=== PATIENT | female | born 1975 ===

== ENCOUNTER 2018-01-03 20:41 | Emergency (ER) | payer MEDICAID ==
[2018-01-03] MEDS ORDERED: Sodium Chloride 0.9% 1,000 ML IV STA (21:20)
--- NOTE | 2018-01-03 21:20 | ED PDOC ---
"Arrival/HPI - General Chief Complaint: Back Pain Time Seen by Provider: 01/03/18 21:14 Historian: Patient - History of Present Illness Narrative History of Present Illness (Text): 01/03/18 21:19 42 year old female, whose past medical history includes hypertension, no known food/drug allergies, who presents to the emergency department complaining of sudden onset of left flank pain since approximately 16:00 today. Pain described as sharp and does not travel anywhere. Patient denies any recent travel, hematuria, chest pain, shortness of breath, nausea, vomiting, abdominal or pelvic pain, or any other complaints. Time/Duration: 4-6 hours Symptom Onset: Sudden Symptom Course: Unchanged Activities at Onset: Light Context: Home Past Medical History - Provider Review Nursing Documentation Reviewed: Yes - Infectious Disease Hx of Infectious Diseases: None Family/Social History - Physician Review Nursing Documentation Reviewed: Yes Family/Social History: Unknown Family HX Allergies/Home Meds Allergies/Adverse Reactions: Allergies No Known Allergies Allergy (Verified 01/03/18 21:06) Home Medications: Home Meds Medication Instructions Recorded Confirmed Metoprolol Succinate XL [Toprol XL] 50 mg PO DAILY 01/03/18 01/03/18 Review of Systems - Physician Review All systems were reviewed & negative as marked: Yes - Review of Systems Constitutional: absent: Fatigue, Fevers Eyes: absent: Vision Changes ENT: absent: Hearing Changes Respiratory: absent: SOB Cardiovascular: absent: Chest Pain Gastrointestinal: absent: Abdominal Pain, Diarrhea, Nausea, Vomiting Genitourinary Female: absent: Hematuria Musculoskeletal: Back Pain (+flank pain). absent: Arthralgias Skin: absent: Rash, Pruritis Psychiatric: absent: Anxiety, Depression, Suicidal Ideation Physical Exam Vital Signs Reviewed: Yes Vital Signs Pulse Resp BP Pulse Ox 01/03/18 22:02 72 17 142/83 100 Temperature: Afebrile Blood Pressure: Normal Pulse: Regular Respiratory Rate: Normal Appearance: Positive for: Well-Appearing, Non-Toxic Pain Distress: Moderate Mental Status: Positive for: Alert and Oriented X 3 - Systems Exam Head: Present: Atraumatic, Normocephalic Pupils: Present: PERRL Extroacular Muscles: Present: EOMI Conjunctiva: Present: Normal Mouth: Present: Moist Mucous Membranes Neck: Present: Normal Range of Motion Respiratory/Chest: Present: Clear to Auscultation, Good Air Exchange. No: Respiratory Distress, Accessory Muscle Use Cardiovascular: Present: Regular Rate and Rhythm, Normal S1, S2. No: Murmurs Abdomen: No: Tenderness, Distention, Peritoneal Signs Back: Present: CVA Tenderness (Tenderness in left CVA). No: Midline Tenderness , Paraspinal Tenderness, Pain with Leg Raise, Other (No rash) Upper Extremity: Present: Normal Inspection. No: Cyanosis, Edema Lower Extremity: Present: Normal Inspection. No: Edema Neurological: Present: GCS=15, CN II-XII Intact, Speech Normal Skin: Present: Warm, Dry, Normal Color. No: Rashes Psychiatric: Present: Alert, Oriented x 3, Normal Insight, Normal Concentration Medical Decision Making ED Course and Treatment: 01/03/18 21:19 Impression: 42 year old female presents for sudden onset of left flank pain since 16:00 today. Plan: -- CT Abdomen and Pelvis -- Labs, lipase -- Urinalysis -- IV fluids -- Toradol -- Reassess and disposition 01/04/18 00:53 -Urine hcg is negative -CT abdomen and pelvis show Multiple punctate bilateral nephrolithiasis. No bilateral hydronephrosis. 3 mm calcification in the left hemipelvis, could either represent calculus in the distal left ureter versus phlebolith. -Labs show no acute findings -UA show no UTI except hematuria -Pt. feels much better after IVF and flomax, clinical suspicious for ureter stone 3mm is high for calculus -All labs/radiology result discussed the patient. -Discharge home with macrobid, flomax, motrin, stay hydrated, follow up with your own pmd and urologist within 2 days, return to the Er for any new or worsening signs or symptoms. - Lab Interpretations Lab Results: 01/03/18 21:37 01/03/18 21:37 Lab Results 01/03/18 21:37: Urine Color Yellow, Urine Appearance Clear, Urine pH 6.0, Ur Specific [place] >= 1.030, Urine Protein 30 H, Urine Glucose (UA) Negative, Urine Ketones Trace H, Urine Blood Trace-intact H, Urine Nitrate Negative, Urine Bilirubin Negative, Urine Urobilinogen 1.0 H, Ur Leukocyte Esterase Negative, Urine RBC 0 - 2, Urine WBC 2 - 5, Ur Epithelial Cells 10 - 12, Urine Bacteria Few, Urine HCG, Qual Negative 01/03/18 21:37: Sodium 141, Potassium 3.9, Chloride 107, Carbon Dioxide 23, Anion Gap 15, BUN 12, Creatinine 0.7, Est GFR ( Amer) > 60, Est GFR (Non- Af Amer) > 60, Random Glucose 103, Calcium 9.4, Magnesium 1.9, Total Bilirubin 0.3, AST 25, ALT 24, Alkaline Phosphatase 59, Total Protein 7.2, Albumin 4.1, Globulin 3.0, Albumin/Globulin Ratio 1.4, Lipase 289 01/03/18 21:37: WBC 4.5, RBC 4.21, Hgb 13.2, Hct 38.4, MCV 91.2, MCH 31.4, MCHC 34.4, RDW 12.6, Plt Count 289, MPV 9.5, Gran % 44.7 L, Lymph % (Auto) 45.5 H, [place] % (Auto) 6.9 H, Eos % (Auto) 2.2, Baso % (Auto) 0.7, Gran # 2.02, Lymph # ( Auto) 2.1, [place] # (Auto) 0.3, Eos # (Auto) 0.1, Baso # (Auto) 0.03 I have reviewed the lab results: Yes - RAD Interpretation Radiology Orders: 01/03/18 21:20 ABDOMEN & PELVIS [ABD & PELVIS W/O PO OR IV CONT] [CT] Stat FINDINGS: Lung bases: Unremarkable. No mass. No consolidation. ABDOMEN: Liver: Unremarkable. Gallbladder and bile ducts: Unremarkable. No calcified stones. No ductal dilation. Pancreas: Unremarkable. No ductal dilation. Spleen: Unremarkable. No splenomegaly. Adrenals: Unremarkable. No mass. Kidneys and ureters: Multiple punctate bilateral nephrolithiasis. No bilateral hydronephrosis. 3 mm calcification in the left hemipelvis, could either represent calculus in the distal left ureter versus phlebolith. Stomach and bowel: Unremarkable. No dilated bowel loops. PELVIS: Appendix: No findings to suggest acute appendicitis. QUYEN ODOM | Preliminary Radiology Report WASHING TUB OPERATOR (QA) DISCREPANCY? If there is a discrepancy between the preliminary and final interpretation, please notify [facility] via [email or web address]. If you do not have access to our QA portal, call our QA team at [phone] CONFIDENTIALITY STATEMENT This report is intended only for the use of the referring physician, and only in accordance with law, If you received this in error, call [phone] Page 2 of 2 Bladder: Unremarkable. No stones. Reproductive: Unremarkable as visualized. ABDOMEN and PELVIS: Intraperitoneal space: Unremarkable. No free air. No drainable fluid collection. Bones/joints: Grade 1 retrolisthesis of L4 on L5 and L5-S1. No acute fracture. No dislocation. Soft tissues: Multiple phleboliths in the pelvis. Vasculature: Unremarkable. No abdominal aortic aneurysm. Lymph nodes: Unremarkable. No enlarged lymph nodes. IMPRESSION: Multiple punctate bilateral nephrolithiasis. No bilateral hydronephrosis. 3 mm calcification in the left hemipelvis, could either represent calculus in the distal left ureter versus phlebolith. Thank you for allowing us to participate in the care of your patient. Dictated and Authenticated by: Florecita Luis MD 01/04/2018 12:03 AM Eastern Time ([place] & [place]) Personal Counselor: Radiologist - Medication Orders Current Medication Orders: Sodium Chloride (Sodium Chloride 0.9%) 1,000 mls @ 999 mls/hr IV .Q1H1M STA Stop: 01/04/18 01:15 Discontinued Medications Sodium Chloride (Sodium Chloride 0.9%) 1,000 mls @ 999 mls/hr IV .Q1H1M STA Stop: 01/03/18 22:20 Last Admin: 01/03/18 21:44 Dose: 999 mls/hr eMAR Start Stop Document 01/03/18 21:44 IT (Rec: 01/03/18 21:44 IT [id number]) Intravenous Solution Start Date 01/03/18 Start Time 21:44 Ketorolac Tromethamine (Toradol) 30 mg IVP STAT STA Stop: 01/03/18 21:21 Last Admin: 01/03/18 21:44 Dose: 30 mg MAR Pain Assessment Document 01/03/18 21:44 IT (Rec: 01/03/18 21:44 IT [id number]) Pain Reassessment Is this a pain reassessment? No Sleep Is patient sleeping during reassessment? No Presence of Pain Presence of Pain Yes IVP Administration Document 01/03/18 21:44 IT (Rec: 01/03/18 21:44 IT [id number]) Charges for Administration # of IVP Administrations 1 Morphine Sulfate (Morphine) 5 mg IVP STAT STA Stop: 01/03/18 22:22 Last Admin: 01/03/18 22:43 Dose: 5 mg MAR Pain Assessment Document 01/03/18 22:43 IT (Rec: 01/03/18 22:43 IT [id number]) Pain Reassessment Is this a pain reassessment? No Sleep Is patient sleeping during reassessment? No Presence of Pain Presence of Pain Yes IVP Administration Document 01/03/18 22:43 IT (Rec: 01/03/18 22:43 IT [id number]) Charges for Administration # of IVP Administrations 1 Tamsulosin HCl (Flomax) 0.4 mg PO STAT STA Stop: 01/04/18 00:16 - PA / TOOLING ENGINEER / Resident Statement MD/DO has reviewed & agrees with the documentation as recorded. - Scribe Statement The provider has reviewed the documentation as recorded by the Tarik Nicholas Provider Scribe Attestation: All medical record entries made by the Lenaibphilip were at my direction and personally dictated by me. I have reviewed the chart and agree that the record accurately reflects my personal performance of the history, physical exam, medical decision making, and the department course for this patient. I have also personally directed, reviewed, and agree with the discharge instructions and disposition. Disposition/Present on Arrival - Present on Arrival Any Indicators Present on Arrival: No History of DVT/PE: No History of Uncontrolled Diabetes: No Urinary Catheter: No History of Decub. Ulcer: No History Surgical Site Infection Following: None - Disposition Have Diagnosis and Disposition been Completed?: Yes Diagnosis: Flank pain Disposition: HOME/ ROUTINE Disposition Time: 00:55 Patient Plan: Discharge Condition: IMPROVED Additional Instructions: -Discharge home with macrobid, flomax, motrin, stay hydrated, follow up with your own pmd and urologist within 2 days, return to the Er for any new or worsening signs or symptoms. Prescriptions: Ibuprofen [Motrin Tab] 600 mg PO QID PRN #30 tab PRN Reason: Other Nitrofurantoin Macrocrystals [Macrobid] 100 mg PO BID #14 cap Tamsulosin [Flomax] 0.4 mg PO DAILY #7 cap Referrals: Duong Moody APN [Primary Care Provider] - Follow up with primary Jacob Harrison MD [Staff Provider] - Follow up with primary Forms: ISBX (K[place]akh), WORK NOTE"
[2018-01-03 22:02] LABS: ALB/GLOB RATIO 1.4 (1.1-1.8); ALBUMIN 4.1 g/dL (3.0-4.8); ALT/SGPT 24 U/L (7-56); AST/SGOT 25 U/L (14-36); BLOOD UREA NITROGEN 12 mg/dL (7-21); CALCIUM 9.4 mg/dL (8.4-10.5); GFR NON-AFRICAN AMERICAN > 60; LIPASE 289 U/L (23-300)
[2018-01-03 22:03] VITALS: PULSE 72
[2018-01-03 22:09] LABS: BASO # 0.03 K/mm3 (0.0-2.0); BASO % 0.7 % (0.0-3.0); EOS # 0.1 (0.0-0.7); EOS % 2.2 % (1.5-5.0); GRAN # 2.02 (1.4-6.5); GRAN % 44.7 % (50.0-68.0); HEMOGLOBIN 13.2 g/dL (12.0-16.0); LYMPH # 2.1 (1.2-3.4); LYMPH % 45.5 % (22.0-35.0); MEAN CELL VOLUME 91.2 fl (80.0-105.0); MEAN CORPUSCULAR HEMOGLOBIN 31.4 pg (25.0-35.0); MEAN CORPUSCULAR HGB CONC 34.4 g/dl (31.0-37.0); MEAN PLATELET VOLUME 9.5 fl (7.0-11.0); MONO # 0.3 (0.1-0.6); MONO % 6.9 % (1.0-6.0); RBC 4.21 10^6/uL (3.5-6.1); RED CELL DISTRIBUTION WIDTH 12.6 % (11.5-14.5); WHITE BLOOD COUNT 4.5 10^3/ul (4.5-11.0)
[2018-01-03 22:10] LABS: URINE BILIRUBIN NEGATIVE (NEGATIVE); URINE BLOOD TRACE-INTACT (NEGATIVE); URINE GLUCOSE (UA) NEGATIVE (NEGATIVE); URINE LEUKOCYTE ESTERASE NEGATIVE Leu/uL (NEGATIVE); URINE PROTEIN 30 mg/dL (<30 mg/dL)
[2018-01-03 22:13] LABS: URINE APPEARANCE CLEAR (CLEAR); URINE COLOR YELLOW (YELLOW)
[2018-01-03] MEDS ORDERED: Morphine 4 mg/ml ISec IVP STA (22:21)
[2018-01-03 22:32] LABS: URINE RBC 0 - 2 /hpf (0-2)
[2018-01-03 22:33] LABS: HCG,QUALITATIVE URINE NEGATIVE (NEGATIVE); URINE BACTERIA FEW (NEG)
[2018-01-04] MEDS ORDERED: Sodium Chloride 0.9% 1,000 ML IV STA (00:15)
[2018-01-04 01:25] VITALS: BP 131/89; RESP 16; TEMP 98.2; O2SAT 98
--- NOTE | 2018-01-04 08:49 | CT ---
Date of service: 01/03/2018 PROCEDURE: CT Abdomen and Pelvis without intravenous contrast HISTORY: Lt. flank pain, sudden on set x 5 hours COMPARISON: Abdomen ultrasound 07/04/2014. TECHNIQUE: Helical CT of the abdomen and pelvis was performed without oral or intravenous contrast as per referring physician request. Contrast dose: None Radiation dose: Total exam DLP = 507.45 mGy-cm. This CT exam was performed using one or more of the following dose reduction techniques: Automated exposure control, adjustment of the mA and/or kV according to patient size, and/or use of iterative reconstruction technique. FINDINGS: LOWER THORAX: Bilateral breast implantation is appreciated submuscular. Limited bilateral basilar dependent atelectasis. LIVER: Unremarkable. No gross lesion or ductal dilatation. GALLBLADDER AND BILE DUCTS: Unremarkable. PANCREAS: Unremarkable. No gross lesion or ductal dilatation. SPLEEN: Unremarkable. ADRENALS: Unremarkable. No mass. KIDNEYS AND URETERS: Multiple punctate nonobstructing intrarenal calculi identified scattered at the left greater than right kidney. No perinephric reaction bilaterally. The urinary bladder is largely decompressed. Clinically correlate further. Follow-up CT with contrast may be performed if clinically warranted. VASCULATURE: Unremarkable. No aortic aneurysm. BOWEL: The stomach is collapsed and poorly evaluated. Evaluation of the gastrointestinal tract is limited due the lack of oral contrast administration. The bowel is not appear obstructed. Prominent retained fecal material seen at the ascending through splenic flexure colon segments which may indicate an element of limited constipation. Remaining bowel is unremarkable. APPENDIX: Unremarkable. Normal appendix. PERITONEUM: Unremarkable. No free fluid. No free air. LYMPH NODES: Unremarkable. No enlarged lymph nodes. BLADDER: Unremarkable. REPRODUCTIVE: Likely bilateral tubal ligation. BONES: No acute fracture. OTHER FINDINGS: None. IMPRESSION: No radiodense urolithiasis, obstructive uropathy or perinephric reaction is appreciated bilaterally. Likely prior bilateral tubal ligation. Concordant preliminary report from [facility], 30 18.
== END 2018-01-04 01:26 | disposition home or self-care (01) ==
LOC: ED 20:41
DX: R10.9 Unspecified abdominal pain (principal); I10 Essential (primary) hypertension
CPT/HCPCS: 74176; 80053; 81001; 83690; 83735; 84703; 85025; 96374; 96375; 99283; J1885; J2270; J7030